=== PATIENT | female | born 1995 | race African-American/Black ===

== ENCOUNTER 2019-12-10 14:18 | Emergency (ER) | payer MEDICAID ==
[~2019-12-10] VITALS: Ht 165.1 cm; Wt 110.0 kg
[2019-12-10] MEDS ORDERED: SODIUM CHLORIDE 0.9% 1,000 ML IV ONE (15:01)
[2019-12-10] MEDS ORDERED: DIPHENHYDRAMINE 50MG/ML VIAL IM STA (15:01)
[2019-12-10] MEDS ORDERED: HALOPERIDOL LACTATE 5MG/ML VIAL IM ONE (15:30)
[2019-12-10 15:43] LABS: BASOPHILS % 0.4 % (0.0-2.0); EOSINOPHILS % 0.1 % (0.0-5.0); HEMATOCRIT. 40.5 % (36.0-48.0); HEMOGLOBIN. 13.4 g/dL (12.0-16.0); LYMPHOCYTES % 25.7 % (20.0-50.0); MEAN CORPUSCULAR HEMOGLOBIN 28.3 pg (28.0-32.0); MEAN CORPUSCULAR VOLUME 85.8 fL (81.0-99.0); MEAN PLATELET VOLUME 9.9 fl (7.4-10.4); NEUTROPHILS % 65.8 % (40.0-76.0); PLATELET 198 x1000/uL (130-400); RED BLOOD CELL COUNT 4.72 mill/uL (4.2-5.4); RED CELL DISTRIBUTION WIDTH 14.2 % (11.6-14.6)
[2019-12-10 15:49] LABS: CHLORIDE 108 mEq/L (98-107); COLOR URINE YELLOW (YELLOW); KETONES URINE 1+ (NEGATIVE); LEUKOCYTE ESTERASE URINE 3+ (NEGATIVE); NITRITE URINE NEGATIVE (NEGATIVE); OCCULT BLOOD URINE TRACE (NEGATIVE); PH URINE 8.5 (4.5-8.0); PROTEIN URINE NEGATIVE (NEGATIVE); SPECIFIC GRAVITY URINE 1.018 (1.005-1.030)
[2019-12-10 15:53] LABS: ETHANOL BLOOD < 10 mg/dL
[2019-12-10 15:56] LABS: CLARITY URINE HAZY (CLEAR)
[2019-12-10 16:08] LABS: *BARBITURATES SCREEN URINE NEGATIVE (NEGATIVE); *BENZODIAZEPINES SCREEN URINE NEGATIVE (NEGATIVE)
[2019-12-10 16:09] LABS: METHADONE URINE SCREEN NEGATIVE (NEGATIVE)
[2019-12-10 16:10] LABS: HCG SCREEN NEGATIVE
[2019-12-10 16:12] LABS: OPIATES URINE SCREEN NEGATIVE (NEGATIVE)
[2019-12-10 16:20] LABS: *AMPHETAMINES SCREEN URINE PRESUMTIVE POSITIVE (NEGATIVE); *COCAINE SCREEN URINE PRESUMTIVE POSITIVE (NEGATIVE); CANNABINOID URINE SCREEN PRESUMTIVE POSITIVE (NEGATIVE); PHENCYCLIDINE URINE SCREEN PRESUMTIVE POSITIVE (NEGATIVE)
[2019-12-10] MEDS ORDERED: LORAZEPAM 2MG/ML CPJ IV SCH (16:30)
[2019-12-10] MEDS ORDERED: CEFTRIAXONE SODIUM 1 G/VIAL IM ONE (22:00)
[2019-12-10] MEDS ORDERED: CEFTRIAXONE 1GM PREMIX 50ML IV NR (22:00)
[2019-12-11] MEDS ORDERED: LORAZEPAM 2MG/ML CPJ IV ONE (02:00)
[2019-12-11] MEDS: NITROFURANTOIN 100MG M/M CAPSULE PO SCH ×2 (09:01→22:05)
[2019-12-12] MEDS: NITROFURANTOIN 100MG M/M CAPSULE PO SCH ×2 (09:00→21:00)
[2019-12-12] MEDS ORDERED: LORAZEPAM 1MG TABLET PO NR (12:00)
[2019-12-13] MEDS: NITROFURANTOIN 100MG M/M CAPSULE PO SCH (09:49)
[2019-12-13 14:39] VITALS: BP 99/65
== END 2019-12-13 14:59 ==
LOC: ER 14:18 → EDBD 14:18 → ER 12-13 14:59
DX: R45.851 Suicidal ideations (principal); R45.850 Homicidal ideations; N39.0 Urinary tract infection, site not specified; F23 Brief psychotic disorder; F15.129 Other stimulant abuse with intoxication, unspecified; F12.129 Cannabis abuse with intoxication, unspecified; F14.129 Cocaine abuse with intoxication, unspecified; Z20.828 Contact with and (suspected) exposure to other viral communicable diseases
CPT/HCPCS: 36415; 80053; 80305; 80307; 80320; 80329; 81003; 81025; 82140; 83690; 84703; 85025; 96365; 96366; 96372; 96375; 96376; 99285; C9803; J0696; J1200; J1630; J2060; J7030; U0003; G0480

== ENCOUNTER 2022-11-01 16:48 | Emergency (ER) | payer MEDICAID, OTHER ==
[~2022-11-01] VITALS: Ht 162.6 cm; Wt 118.0 kg
[2022-11-01 17:01] VITALS: BP 104/68
== END 2022-11-01 17:41 | disposition home or self-care (01) ==
LOC: ER 16:48
DX: R51.9 Headache, unspecified (principal); M54.9 Dorsalgia, unspecified
CPT/HCPCS: 99283